=== PATIENT | female | born 1985 | race Caucasian/White ===

== ENCOUNTER 2016-12-02 11:51 | Outpatient (CLI) | payer OTHER ==
[~2016-12-02] VITALS: Ht 154.9 cm; Wt 63.5 kg
[~2016-12-02 11:51] MED LIST: FOLI0.4T2 PO; PREN1TAB49 PO
[2016-12-02 12:11] VITALS: Ht 154.9 cm; Wt 63.5 kg
[2016-12-02 12:12] VITALS: BP 105/56; PULSE 93; RESP 20
[2016-12-02 12:25] LABS: ADD SCAN DIFF NO
[2016-12-02 12:34] LABS: BASOPHIL # 0.1 10^3/ul (0.0-0.1); BASOPHILS % 0.5 % (0.0-2.0); EOSINOPHILS # 0.1 10^3/ul (0.0-0.5); EOSINOPHILS % 0.9 % (0.0-7.0); HEMATOCRIT 31.6 % (37.0-47.0); HEMOGLOBIN 10.6 g/dl (12.0-16.0); LYMPHOCYTES # 1.6 10^3/ul (0.8-2.9); LYMPHOCYTES % 15.5 % (15.0-51.0); MEAN CORPUSCULAR HEMOGLOBIN 30.7 pg (29.0-33.0); MEAN CORPUSCULAR HGB CONC 33.5 g/dl (32.0-37.0); MEAN CORPUSCULAR VOLUME 91.6 fl (82.0-101.0); MEAN PLATELET VOLUME 9.8 fl (7.4-10.4); MONOCYTE # 0.5 10^3/ul (0.3-0.9); NEUTROPHIL # 7.9 10^3/ul (1.6-7.5); NEUTROPHILS % 77.8 % (39.0-77.0); PLATELET COUNT 215 10^3/UL (140-415); RED BLOOD COUNT 3.45 10^6/ul (4.20-5.40); RED CELL DISTRIBUTION WIDTH 14.6 % (11.5-14.5); WHITE BLOOD COUNT 10.1 10^3/ul (4.8-10.8)
--- NOTE | 2016-12-02 13:42 | RADRPT ---
PROCEDURE: US OB. CLINICAL INDICATION: Size and dates , vaginal bleeding TECHNIQUE: Multiple sonographic images of the pelvis and gravid uterus were obtained. The images were reviewed on a PACS workstation. COMPARISON: No prior studies are available for comparison. FINDINGS: There is a single viable intrauterine gestation. Cardiac activity is present with 161 beats per min kaur. There is a transverse left presentation. The placenta is posterior. There is no evidence for an abruption. There is complete placenta previa . There is a normal amount of amniotic fluid with a MVP = 6.4 cm. Measurements were made in order to determine age. The results are as follows: BPD =5.7 cm HC =21.4 cm AC =18.1 cm FL =4.0 cm Estimated gestational age of approximately 23 weeks and 2 days based on ultrasound measurements. Clinical age: 23 weeks and 2 days. The estimated date of delivery is 03/29/2017, based on ultrasound measurements. The EFW = 560 g, 32.3 %, based on LMP age. RPTAT: AA IMPRESSION: Single viable intrauterine gestation of approximately 23 weeks and 2 days based on ultrasound measu rements. Posterior placenta with complete previa. .Teja Richmond MD, MD Date Time Electronically viewed and signed by .Teja Richmond MD, MD on 12/02/2016 13:42 .S/
--- NOTE | 2016-12-02 14:02 | TRIAGE ---
OB Triage Datetime Report Generated by CPN: 12/02/2016 14:01 Datetime: 12/02/2016 13:08 DTR's/Clonus: DTRs 2+ Headache: Denies Blurred Vision: No RUQ Epigastric Pain: Denies Facial Edema: None Labor Evaluation Frequency: NONE AT THIS TIME Pattern: Normal: <= 5 Contractions in 10 Minutes Heart Rate FHR Baseline Rate: 145 FHR Baseline Changes: No Baseline Change Variability: Moderate 6-25 bpm Accelerations: 15X15 Decelerations: None Category: Category I Pain Assessment Pain Scale: 0 Pain Presence: None/Denies Vaginal Exam Membrane Status: Intact Datetime: 12/02/2016 12:25 Labor Evaluation Frequency: NONE AT THIS TIME Heart Rate FHR Baseline Rate: 150 Monitor Mode: External US FHR Baseline Changes: No Baseline Change Variability: Moderate 6-25 bpm Decelerations: None Category: Category I Pain Assessment Pain Scale: 0 Pain Presence: None/Denies Vaginal Exam Membrane Status: Intact Datetime: 12/02/2016 12:07 Time of Arrival: 12/02/2016 12:00 EGA: 23.2 Arrived By: Ambulatory Arrived From: Home Chief Complaint: VAG SPOTTING SINCE 1030 KNOWN COMPLETE PREVIA Movement: Present Contractions: Denies/Absent Vaginal Bleeding: Scant Patient Complaints: Other Time Provider Notified: 12/02/2016 12:07 Provider Notified: DR RIVERA Initial Plan: EFM,CALL DR RIVERA DTR's/Clonus: DTRs 2+ Headache: Denies Blurred Vision: No RUQ Epigastric Pain: Denies Facial Edema: None Heart Rate FHR Baseline Rate: 145 Monitor Mode: External US FHR Baseline Changes: No Baseline Change Variability: Minimal - Undetectable to <=5 bpm Category: Category I Comments: APPROPRIATE FOR GEST AGE Pain Assessment Pain Scale: 0 Pain Presence: None/Denies Vaginal Exam Membrane Status: Intact Datetime: 12/02/2016 12:06 Maternal Assessment Level of Consciousness: Fully Conscious DTR's/Clonus: DTRs 2+; No Clonus Headache: Denies Blurred Vision: No Respiratory Effort: Unlabored; Regular Rhythm; Equal Expansion Breath Sounds, Left: Clear and Equal Breath Sounds, Right: Clear and Equal Nausea/Vomiting: Denies RUQ Epigastric Pain: Denies Facial Edema: None Temperature Route: Axillary Fall Risk Assessment History of Falling: (0) No Secondary Diagnosis: (0) No Ambulatory Aid: (0) Bedrest/Nurse Assist IV Therapy: (0) No Gait: (0) Normal/Bedrest/Immobile Mental Status: (0) Oriented to Own Ability Fall Score: 0 Fall Risk Score Definition: No Risk: No action required
--- NOTE | 2016-12-02 15:39 | QN ---
Documentation Comment iup 23 weeks co of spotting vss exam wnl us complete previa a/p iup 23 weeks previa- no bleeding currently-stable fht stable dc home precuations fu with ob in 2-3 days TIMOTHY RIVERA MD Dec 02, 2016 15:39
== END 2016-12-02 14:04 | disposition home or self-care (01) ==
LOC: OBT 11:51 → L-D 11:53 → OBT 14:04
PROVIDERS: ATTEND Obstetrics & Gynecology
DX: O26.852 Spotting complicating pregnancy, second trimester (principal); Z3A.23 23 weeks gestation of pregnancy
CPT/HCPCS: 36415; 76815; 85025; 86850; 86900; 86901; Z7500; G0463

== ENCOUNTER 2017-01-01 10:30 | Outpatient (CLI) | payer OTHER ==
[~2017-01-01] VITALS: Ht 160 cm; Wt 64.4 kg
[2017-01-01 10:38] VITALS: BP 103/61; PULSE 89; RESP 17; Ht 160 cm; Wt 64.4 kg
--- NOTE | 2017-01-01 11:31 | RADRPT ---
PROCEDURE: OB ultrasound for biophysical profile CLINICAL INDICATION: Bleeding. . TECHNIQUE: Multiple sonographic images of the pelvis were obtained. Transabdominal view of the gr avid uterus are available for review. The images were reviewed on a PACS workstation. COMPARISON: OB ultrasound 12/02/2016 FINDINGS: breathing movement = 2/2 tone = 2/2 motion = 2/2 KYLE = 2/2 KYLE = 13.3 cm Single live intrauterine with cardiac activity. heart rate equals 150.2 beats per minute. Presentation is breech. The placenta is posterior. Again noted is complete placenta previa IMPRESSION: 1. Single viable intrauterine gestation. 2. Biophysical profile = 8/8. 3. KYLE = 13.3 cm. 4. Complete placenta previa again noted. RPTAT: KK .Mick Wesley MD, Date Time Electronically viewed and signed by .Mick Wesley MD, MD on 01/01/2017 11:30 .B/
--- NOTE | 2017-01-01 11:33 | RADRPT ---
PROCEDURE: US OB - Limited weight. CLINICAL INDICATION: Bleeding. . TECHNIQUE: Multiple sonographic images of the pelvis were obtained. Transabdominal imaging only w as performed. The images were reviewed on a PACS workstation. COMPARISON: OB ultrasound 12/02/2016. FINDINGS: There is a single viable intrauterine gestation. Cardiac activity is present with 134 beats per min kaur. There is a breech presentation. Measurements were made in order to determine age. The results are as follows: BPD = 7.5 cm HC = 25.8 cm AC = 23.6 cm FL = 4.8 .cm Estimated gestational age of approximately 28 weeks 0 days +/ - 2 weeks 0 days by ultrasound evalua tion. The estimated date of delivery is 03/26/2017 by ultrasound evaluation. The EFW = 1068 +/- 168 g (31%). The placenta is posterior. There is complete placenta previa again noted. IMPRESSION: 1. Single viable intrauterine gestation of approximately 28 weeks 0 days gestation with estimated d ate of delivery of 03/26/2017 by ultrasound. 2. The estimated weight is 1068 g (31%) . 3. Complete placenta previa. RPTAT: KK .Mick Wesley MD, Date Time Electronically viewed and signed by .Mick Wesley MD, MD on 01/01/2017 11:32 .B/
[2017-01-01 11:39] LABS: ADD SCAN DIFF NO
[2017-01-01 11:58] LABS: BASOPHILS % 0.3 % (0.0-2.0); EOSINOPHILS # 0.1 10^3/ul (0.0-0.5); EOSINOPHILS % 0.6 % (0.0-7.0); HEMATOCRIT 31.2 % (37.0-47.0); HEMOGLOBIN 10.8 g/dl (12.0-16.0); LYMPHOCYTES # 1.6 10^3/ul (0.8-2.9); LYMPHOCYTES % 16.6 % (15.0-51.0); MEAN CORPUSCULAR HGB CONC 34.6 g/dl (32.0-37.0); MEAN CORPUSCULAR VOLUME 92.6 fl (82.0-101.0); MONOCYTE # 0.6 10^3/ul (0.3-0.9); MONOCYTES % 6.4 % (0.0-11.0); NEUTROPHIL # 7.2 10^3/ul (1.6-7.5); NEUTROPHILS % 75.7 % (39.0-77.0); PLATELET COUNT 188 10^3/UL (140-415); RED BLOOD COUNT 3.37 10^6/ul (4.20-5.40); RED CELL DISTRIBUTION WIDTH 15.4 % (11.5-14.5); WHITE BLOOD COUNT 9.5 10^3/ul (4.8-10.8)
[2017-01-01 12:05] LABS: ADD UMIC YES; UR ASCORBIC ACID NEGATIVE (NEGATIVE); UR BACTERIA FEW /HPF (NONE SEEN); UR BILIRUBIN (Dip) NEGATIVE (NEGATIVE); UR BLOOD (Dip) 3+ mg/dL (NEGATIVE); UR CLARITY CLEAR (CLEAR); UR COLOR YELLOW (YELLOW); UR GLUCOSE (Dip) NEGATIVE (NEGATIVE); UR KETONES (Dip) NEGATIVE (NEGATIVE); UR LEUKOCYTE ESTERASE (Dip) 1+ Leu/ul (NEGATIVE); UR NITRITE (Dip) NEGATIVE (NEGATIVE); UR RBC 11 /HPF (0-5); UR SPECIFIC GRAVITY (Dip) 1.003 (1.003-1.030); UR TOTAL PROTEIN (Dip) NEGATIVE (NEGATIVE); UR UROBILINOGEN (Dip) NEGATIVE (NEGATIVE)
--- NOTE | 2017-01-01 13:36 | TRIAGE ---
OB Triage Datetime Report Generated by CPN: 01/01/2017 13:36 Datetime: 01/01/2017 13:17 Labor Evaluation Frequency: 0 Monitor Mode: External Pattern: Normal: <= 5 Contractions in 10 Minutes Resting Tone [place]: Relaxed Heart Rate FHR Baseline Rate: 135 Monitor Mode: External US FHR Baseline Changes: No Baseline Change Variability: Moderate 6-25 bpm Accelerations: 15X15 Decelerations: None Category: Category I Pain Assessment Pain Scale: 0 Pain Presence: None/Denies Pain Type: N/A Datetime: 01/01/2017 12:00 Labor Evaluation Frequency: 0 Monitor Mode: External Pattern: Normal: <= 5 Contractions in 10 Minutes Resting Tone [place]: Relaxed Heart Rate FHR Baseline Rate: 135 Monitor Mode: External US FHR Baseline Changes: No Baseline Change Variability: Moderate 6-25 bpm Accelerations: 15X15 Decelerations: None Category: Category I Pain Assessment Pain Scale: 0 Pain Presence: None/Denies Pain Type: N/A Datetime: 01/01/2017 11:00 Labor Evaluation Frequency: 0 Monitor Mode: External Pattern: Normal: <= 5 Contractions in 10 Minutes Resting Tone [place]: Relaxed Heart Rate FHR Baseline Rate: 135 Monitor Mode: External US FHR Baseline Changes: No Baseline Change Variability: Moderate 6-25 bpm Accelerations: 15X15 Decelerations: None Category: Category I Pain Assessment Pain Scale: 0 Pain Presence: None/Denies Pain Type: N/A Datetime: 01/01/2017 10:36 Pain Assessment Pain Scale: 0 Pain Presence: None/Denies Pain Type: N/A Datetime: 01/01/2017 10:35 Assessment Type: Triage Maternal Assessment Level of Consciousness: Fully Conscious DTR's/Clonus: DTRs 2+; No Clonus Headache: Denies Blurred Vision: No Respiratory Effort: Unlabored; Regular Rhythm Breath Sounds, Left: Clear and Equal Breath Sounds, Right: Clear and Equal Nausea/Vomiting: Denies RUQ Epigastric Pain: Denies Lower Extremities Edema: None Degree: None Upper Extremities Edema: None Degree: None Facial Edema: None Fall Risk Assessment History of Falling: (0) No Secondary Diagnosis: (0) No Ambulatory Aid: (0) Bedrest/Nurse Assist IV Therapy: (0) No Gait: (0) Normal/Bedrest/Immobile Mental Status: (0) Oriented to Own Ability Fall Score: 0 Fall Risk Score Definition: No Risk: No action required Datetime: 01/01/2017 10:34 Time of Arrival: 01/01/2017 10:25 EGA: 27.4 Arrived By: Wheelchair Arrived From: Home Chief Complaint: PT PRESENTS TO TRIAGE COMPLAINING OF VAGINAL BLEEDING SINCE 0920 THIS MORNING. TYLER BUI REPORTS HAVING PLACENTA PREVIA. Movement: Present Contractions: Denies/Absent Rupture of Membranes: Denies Vaginal Bleeding: Small Vaginal Discharge: Present Recent Sexual Intercouse: Denies Abdominal Trauma: Not Applicable Patient Complaints: None Time Provider Notified: 01/01/2017 10:40 Provider Notified: ESHAGHIAN Initial Plan: EFM/U/S, UA, CBC, TYPE AND SCREEN Datetime: 12/02/2016 12:07 EGA: 23.2 Datetime: 12/02/2016 12:06 Fall Score: 0 Fall Risk Score Definition: No Risk: No action required
[2017-01-01 14:15] LABS: BARBITURATES Negative (NEGATIVE); BENZODIAZEPINES Negative (NEGATIVE); CANNABINOIDS Negative (NEGATIVE); COCAINE Negative (NEGATIVE); OPIATES Negative (NEGATIVE)
--- NOTE | 2017-01-01 14:25 | CONS ---
Date/Time of Note Date/Time of Note DATE: 01/01/17 TIME: 13:29 Consultation Date/Type/Reason Admit Date/Time January 01, 2017 OB triage consult Reason for Consultation This patient is a 31 years old 4 para 3 with estimated date of confinement of March 29, 2017 which makes her 27 weeks and 4 days today . she has been diagnosed with the central placenta previa and this morning 9,20 AM she started having some bleeding for this reason she came to the hospital complaining of vaginal bleeding slight abdominal pain . On examination she is a well-developed well-nourished lady at midterm. Her vital signs generally are normal with the blood pressure 103/61, pulse rate of 89 respirations 17,, and temperature of 92.2. On examination abdomen is soft no contraction, heart tone is normal ,no decelerations. patient is slightly pale Laboratory Tests Test 01/01/17 10:30 01/01/17 10:55 Urine Color YELLOW Urine Clarity CLEAR Urine pH 7.0 Urine Specific [place] 1.003 Urine Ketones NEGATIVEmg/dL Urine Nitrite NEGATIVEmg/dL Urine Bilirubin NEGATIVEmg/dL Urine Urobilinogen NEGATIVEmg/dL Urine Leukocyte Esterase 1+Hai/ul Urine Microscopic RBC 11/HPF Urine Microscopic WBC 5/HPF Urine Bacteria FEW/HPF Urine Hemoglobin 3+mg/dL Urine Glucose NEGATIVEmg/dL Urine Total Protein NEGATIVEmg/dl White Blood Count 9.510^3/ul Red Blood Count 3.3710^6/ul Hemoglobin 10.8g/dl Hematocrit 31.2% Mean Corpuscular Volume 92.6fl Mean Corpuscular Hemoglobin 32.0pg Mean Corpuscular Hemoglobin Concent 34.6g/dl Red Cell Distribution Width 15.4% Platelet Count 09115^3/UL Mean Platelet Volume 10.0fl Neutrophils % 75.7% Lymphocytes % 16.6% Monocytes % 6.4% Eosinophils % 0.6% Basophils % 0.3% Nucleated Red Blood Cells % 0.0/100WBC Neutrophils # 7.210^3/ul Lymphocytes # 1.610^3/ul Monocytes # 0.610^3/ul Eosinophils # 0.110^3/ul Basophils # 0.010^3/ul Nucleated Red Blood Cells # 0.010^3/ul Constitutional: No chills, No diaphoresis, No disoriented, No febrile, No improved, No no complaints, No other, No poor po, No requiring IVF, No requiring O2 Eyes: No discharge, No no complaints, No other, No pain, No redness, No visual change ENT: other (Conjunctival or slightly pale due to her anemia), No bleeding, No congestion, No discharge, No dysphagia, No no complaints, No pain, No sore throat Respiratory: No cough, No no complaints, No other, No pain, No pleuritic pain, No shortness of breath, No sputum, No wheezing Cardiovascular: No chest pain, No edema, No lightheadedness, No no complaints, No orthopenea, No other, No palpitations, No paroxysmal nocturnal dyspnea Gastrointestinal: other, No blood, No constipation, No decreased appetite, No diarrhea, No flatus, No nausea, No no complaints, No pain, No passing stool, No vomiting Genitourinary: other (Slight vaginal bleeding which subsided after about one half hour stay in the hospital), No bleeding, No discharge, No dysuria, No flank pain, No hematuria, No no complaints Musculoskeletal: No back pain, No bone/joint pain, No neck pain, No no complaints, No other, No restricted range of motion, No swelling Skin: No bruising, No erythema, No laceration, No no complaints, No other, No pruritis, No rash, No skin lesions Neurologic: No confusion, No dizziness, No focal-weakness, No headache, No no complaints, No other, No seizure, No syncope Endocrine: No dry skin, No no complaints, No other, No polydypsia, No polyuria , No temp intolerance Lymphatic: No adenopathy, No lymphadema, No no complaints, No other, No tender nodes Additional Comments Her lab tests were basically normal except for the mild anemia with hemoglobin of 10.8 hematocrit 31.2 . platelet count was 180,000 .urine showed 1+ hemoglobin and which is not unusual in the case of vaginal bleeding. On ultrasound study a single viable intrauterine gestation was reported with cardiac rhythm of 134. In breech presentation estimated gestational age was approximately 28 weeks by ultrasound estimated weight was 1068 g 168 g Her biophysical profile was reported 01/29 with KYLE of 13.3 With improvement of her condition and secession of vaginal bleeding patient discharged home with instruction to rest no intercourse in case of bleeding to come to the hospital immediately She most likely will undergo an elective section with her 36 weeks End of dictation Social History Smoking Status: Never smoker Exam/Review of Systems Vital Signs Vitals Vital Signs Date Time Temp Pulse Resp B/P Pulse Ox O2 Delivery O2 Flow Rate FiO2 01/01/17 10:38 98.2 89 17 103/61 Room Air Results Result Diagram: 01/01/17 1055 Results 24 hrs Laboratory Tests Test 01/01/17 10:30 01/01/17 10:55 Urine Color YELLOW Urine Clarity CLEAR Urine pH 7.0 Urine Specific [place] 1.003 Urine Ketones NEGATIVE Urine Nitrite NEGATIVE Urine Bilirubin NEGATIVE Urine Urobilinogen NEGATIVE Urine Leukocyte Esterase 1+ H Urine Microscopic RBC 11 H Urine Microscopic WBC 5 Urine Bacteria FEW A Urine Hemoglobin 3+ H Urine Glucose NEGATIVE Urine Total Protein NEGATIVE White Blood Count 9.5 Red Blood Count 3.37 L Hemoglobin 10.8 L Hematocrit 31.2 L Mean Corpuscular Volume 92.6 Mean Corpuscular Hemoglobin 32.0 Mean Corpuscular Hemoglobin Concent 34.6 Red Cell Distribution Width 15.4 H Platelet Count 188 Mean Platelet Volume 10.0 Neutrophils % 75.7 Lymphocytes % 16.6 Monocytes % 6.4 Eosinophils % 0.6 Basophils % 0.3 Nucleated Red Blood Cells % 0.0 Neutrophils # 7.2 Lymphocytes # 1.6 Monocytes # 0.6 Eosinophils # 0.1 Basophils # 0.0 Nucleated Red Blood Cells # 0.0 MEDHAT VEGA MD Jan 01, 2017 14:25
== END 2017-01-01 13:30 | disposition home or self-care (01) ==
LOC: OBT 10:30 → L-D 10:31 → OBT 13:30
PROVIDERS: ATTEND Obstetrics & Gynecology
DX: O46.8X2 Other antepartum hemorrhage, second trimester (principal); Z3A.27 27 weeks gestation of pregnancy
CPT/HCPCS: 36415; 76815; 76818; 80307; 81001; 85025; 86850; 86900; 86901; 87086; Z7500; G0463

== ENCOUNTER 2017-01-20 23:35 | Outpatient (CLI) | payer OTHER ==
[~2017-01-20] VITALS: Ht 157.5 cm; Wt 65.4 kg
[2017-01-21] VITALS: Ht 157.5 cm; Wt 65.4 kg
[2017-01-21 00:01] VITALS: BP 113/68; PULSE 80; RESP 18
[2017-01-21] MEDS ORDERED: FERR325C PO (00:09)
[2017-01-21] MEDS ORDERED: BETAMET NA PHOS/AC(6 MG/ML) 5ML INJ IM STA (01:04)
[2017-01-21] MEDS ORDERED: NIFEdipine 10 MG CAP PO STA (01:04)
[2017-01-21] MEDS ORDERED: LACTATED RINGER'S 1,000 ML IV STA (01:04)
[2017-01-21] MEDS ORDERED: NIFEdipine 10 MG CAP PO SCH (01:21)
[2017-01-21] MEDS ORDERED: LACTATED RINGER'S 1,000 ML IV SCH (02:00)
[2017-01-21 02:20] LABS: ADD UMIC YES; UR ASCORBIC ACID NEGATIVE (NEGATIVE); UR BACTERIA FEW /HPF (NONE SEEN); UR BILIRUBIN (Dip) NEGATIVE (NEGATIVE); UR BLOOD (Dip) 3+ mg/dL (NEGATIVE); UR CLARITY CLEAR (CLEAR); UR COLOR STRAW (YELLOW); UR GLUCOSE (Dip) NEGATIVE (NEGATIVE); UR KETONES (Dip) TRACE mg/dL (NEGATIVE); UR LEUKOCYTE ESTERASE (Dip) 1+ Leu/ul (NEGATIVE); UR NITRITE (Dip) NEGATIVE (NEGATIVE); UR RBC 6 /HPF (0-5); UR SPECIFIC GRAVITY (Dip) 1.005 (1.003-1.030); UR SQUAMOUS EPITHELIAL CELL FEW /HPF (FEW); UR TOTAL PROTEIN (Dip) NEGATIVE (NEGATIVE); UR UROBILINOGEN (Dip) NEGATIVE (NEGATIVE)
[2017-01-21 02:28] LABS: BASOPHILS % 0.4 % (0.0-2.0); EOSINOPHILS # 0.1 10^3/ul (0.0-0.5); EOSINOPHILS % 0.7 % (0.0-7.0); HEMATOCRIT 31.9 % (37.0-47.0); HEMOGLOBIN 11.3 g/dl (12.0-16.0); LYMPHOCYTES # 2.6 10^3/ul (0.8-2.9); LYMPHOCYTES % 22.9 % (15.0-51.0); MEAN CORPUSCULAR HEMOGLOBIN 32.8 pg (29.0-33.0); MEAN CORPUSCULAR HGB CONC 35.4 g/dl (32.0-37.0); MEAN CORPUSCULAR VOLUME 92.5 fl (82.0-101.0); MEAN PLATELET VOLUME 9.8 fl (7.4-10.4); MONOCYTE # 0.8 10^3/ul (0.3-0.9); MONOCYTES % 7.2 % (0.0-11.0); NEUTROPHIL # 7.6 10^3/ul (1.6-7.5); NEUTROPHILS % 68.2 % (39.0-77.0); PLATELET COUNT 180 10^3/UL (140-415); RED BLOOD COUNT 3.45 10^6/ul (4.20-5.40); RED CELL DISTRIBUTION WIDTH 14.9 % (11.5-14.5); WHITE BLOOD COUNT 11.2 10^3/ul (4.8-10.8)
--- NOTE | 2017-01-21 02:35 | RADRPT ---
PROCEDURE: US OB. CLINICAL INDICATION: Vaginal bleeding. TECHNIQUE: Multiple sonographic images of the pelvis were obtained. Transabdominal imaging only w as performed. The images were reviewed on a PACS workstation. COMPARISON: 01/01/2017. FINDINGS: Single live intrauterine is identified. Cardiac activity is present with 152 beats per mi nute. There is a vertex presentation. Measurements: BPD = 32 weeks 0 days. HC = 31 weeks 5 days. AC = 30 weeks 6 days. FL = 29 weeks 5 days. Estimated gestational age of approximately 31 weeks 1 day. The estimated date of delivery is 03/24/2017. The EFW = 1616 g which is at the 45th percentile. The placenta is left lateral. There is no evidence for an abruption or placenta previa. Cervix is 5.2 cm in length. IMPRESSION: Single live intrauterine gestation of approximately 31 weeks 1 day. RPTAT: HMVK .Esvin Brown MD, Date Time Electronically viewed and signed by .Esvin Brown MD, on 01/21/2017 02:34 .K/
--- NOTE | 2017-01-21 05:15 | PN ---
Triage Information Date/Time January 21, 2017 Weeks of Gestation 30w 3d : 4 Para: 3 Diabetes: none Hypertention: none Additional information Pt with a known previa came in after passing a medium sized clot. Pt was here mid November and mid December for spotting. On 01/14, 01/16 and 01/20 the pt reports that she passed a medium sized clot but apparently didn't think to come in until today. Pt has 3 children ranging from 5 to 10 years old and both she and her have no one here to help them at all if she is admitted to the hospital. She says she has a relative coming on 12/26 from [place] to help out. Her has his own business and apparently cannot stop his business to take care of the children. Pt denies any cramping. PMHx: Asthma. Anemia. Placenta previa. PSHx: Tonsillectomy. Tumgrace marcusck. NKDA. Objective Vital Signs Date Time Temp Pulse Resp B/P Pulse Ox O2 Delivery O2 Flow Rate FiO2 01/21/17 00:01 97.6 80 18 113/68 96 Room Air Intake and Output 01/20/17 01/20/17 01/21/17 15:00 23:00 07:00 Intake Total 1125 ml Balance 1125 ml Heart Rate: 130's Heart Rate Comments Accels to 160 bpm. No decels. Contractions: < 5 Minutes Apart Results/Medications Result Diagram: 01/21/17 0134 Results 24 hrs Laboratory Tests Test 01/21/17 00:37 01/21/17 01:34 Urine Color [place]AW Urine Clarity CLEAR Urine pH 6.0 Urine Specific [place] 1.005 Urine Ketones TRACE A Urine Nitrite NEGATIVE Urine Bilirubin NEGATIVE Urine Urobilinogen NEGATIVE Urine Leukocyte Esterase 1+ H Urine Microscopic RBC 6 H Urine Microscopic WBC 6 H Urine Squamous Epithelial Cells FEW Urine Bacteria FEW A Urine Hemoglobin 3+ H Urine Glucose NEGATIVE Urine Total Protein NEGATIVE White Blood Count 11.2 H Red Blood Count 3.45 L Hemoglobin 11.3 L Hematocrit 31.9 L Mean Corpuscular Volume 92.5 Mean Corpuscular Hemoglobin 32.8 Mean Corpuscular Hemoglobin Concent 35.4 Red Cell Distribution Width 14.9 H Platelet Count 180 Mean Platelet Volume 9.8 Neutrophils % 68.2 Lymphocytes % 22.9 Monocytes % 7.2 Eosinophils % 0.7 Basophils % 0.4 Nucleated Red Blood Cells % 0.0 Neutrophils # 7.6 H Lymphocytes # 2.6 Monocytes # 0.8 Eosinophils # 0.1 Basophils # 0.0 Nucleated Red Blood Cells # 0.0 Medications Current Medications Lactated Ringer's (Lr) 1,000 ml @ 125 mls/hr Q8H IV Last administered on t 02:19; Admin Dose 125 MLS/HR; Start 01/21/17 at 02:00 Nifedipine (Procardia) 20 mg Q6 PO ; Start 01/21/17 at 01:21 Imaging Results Cervical length is 5.2 cm. Per this report there is no previa (but on all prior exams she has had a complete previa, including 2 weeks ago!!). EFW 1616 grams. S=D. Assessment/Plan A: IUP at 30w 3d. Placenta previa. Bleeding. Asthma. P: Pt is rather adamant that she cannot stay as there is no one available to take care of her kids. Beta-methasone given. Pt to return in 24 hours for the 2nd dose. IV hydration and Procardia 20 mg p.o. x 1 given and the pt's UC's stopped. Modified bedrest at home and reviewed carefully what that exactly means. Pt sent out with Procardia 20 mg Rx to be taken q 6 hours. F/U with Dr Clemente as scheduled this week!! NEFTALI QUINTANA MD Jan 21, 2017 05:06
--- NOTE | 2017-01-21 05:47 | TRIAGE ---
OB Triage Datetime Report Generated by CPN: 01/21/2017 05:47 Datetime: 01/21/2017 05:20 Stage of : OB Triage Datetime: 01/21/2017 04:57 Stage of : OB Triage Labor Evaluation Frequency: 0 Monitor Mode: External Resting Tone [place]: Relaxed Heart Rate FHR Baseline Rate: 130 Monitor Mode: External US Variability: Moderate 6-25 bpm Accelerations: 15X15 Decelerations: None Category: Category I Datetime: 01/21/2017 03:20 Stage of : OB Triage Labor Evaluation Frequency: 2-10 Monitor Mode: External Duration (sec)2399: 40-70 Quality: Mild Resting Tone [place]: Relaxed Heart Rate FHR Baseline Rate: 130 Monitor Mode: External US Variability: Moderate 6-25 bpm Accelerations: 15X15 Decelerations: None Category: Category I Datetime: 01/21/2017 03:19 Stage of : OB Triage Datetime: 01/21/2017 02:31 Monitor Mode: Palpation Resting Tone [place]: Relaxed Contraction Comments: palpated kicks Datetime: 01/21/2017 02:17 Monitor Mode: External Monitor Mode: External US Datetime: 01/21/2017 02:12 Stage of : OB Triage Datetime: 01/21/2017 02:10 Stage of : OB Triage Datetime: 01/21/2017 02:01 Stage of : OB Triage Labor Evaluation Frequency: 3-7 Monitor Mode: External Duration (sec)2399: 50-120 Quality: Mild Resting Tone [place]: Relaxed Heart Rate FHR Baseline Rate: 120 Monitor Mode: External US Variability: Moderate 6-25 bpm Accelerations: 15X15 Decelerations: None Category: Category I Datetime: 01/21/2017 01:00 Stage of : OB Triage Labor Evaluation Frequency: 2-14 Monitor Mode: External Duration (sec)2399: 40-120 Quality: Mild Resting Tone [place]: Relaxed Heart Rate FHR Baseline Rate: 130 Monitor Mode: External US Variability: Moderate 6-25 bpm Accelerations: 15X15 Decelerations: None Category: Category I Datetime: 01/21/2017 00:45 Stage of : OB Triage Datetime: 01/21/2017 00:38 Stage of : OB Triage Datetime: 01/20/2017 23:51 Stage of : OB Triage Monitor Mode: External Contraction Comments: PLACED Monitor Mode: External US Comments: PLACED Datetime: 01/20/2017 23:44 Time of Arrival: 01/20/2017 23:28 EGA: 30.2 Arrived By: Wheelchair Arrived From: Home Chief Complaint: CLOTS, SPOTTING Movement: Present Contractions: Denies/Absent Rupture of Membranes: Denies Vaginal Bleeding: Clots Vaginal Discharge: Denies Recent Sexual Intercouse: Denies Abdominal Trauma: Not Applicable Patient Complaints: Other Additional Patient Complaints: Pt states she has placenta previa, and has had a hx of intermittent clots, spotting. Pt states dr told her she can drive, and started spotting after Time Provider Notified: 01/20/2017 23:33 Provider Notified: REICHE Initial Plan: VS, EFM, VS Datetime: 01/01/2017 10:35 Fall Risk Assessment Fall Score: 0 Fall Risk Score Definition: No Risk: No action required Datetime: 01/01/2017 10:34 EGA: 27.4 Datetime: 12/02/2016 12:07 EGA: 23.2 Datetime: 12/02/2016 12:06 Fall Risk Assessment Fall Score: 0 Fall Risk Score Definition: No Risk: No action required
== END 2017-01-21 05:25 | disposition home or self-care (01) ==
LOC: OBT 23:35 → L-D 23:35 → OBT 01-21 05:25
PROVIDERS: ATTEND Obstetrics & Gynecology
DX: O44.13 Complete placenta previa with hemorrhage, third trimester (principal); O99.513 Diseases of the respiratory system complicating pregnancy, third trimester; J45.909 Unspecified asthma, uncomplicated; Z3A.30 30 weeks gestation of pregnancy
CPT/HCPCS: 36415; 76815; 76817; 81001; 85025; 96360; 96361; 96372; J0702; J7120; Z7500; Z7610; G0463

== ENCOUNTER 2017-01-21 23:51 | Outpatient (CLI) | payer OTHER ==
[~2017-01-21] VITALS: Ht 157.5 cm; Wt 66.1 kg
[~2017-01-21 23:51] MED LIST changes: +FERR325C PO
[2017-01-22 00:13] VITALS: Ht 157.5 cm; Wt 66.1 kg
[2017-01-22 00:17] VITALS: BP 101/58; PULSE 86; RESP 18
[2017-01-22] MEDS ORDERED: BETAMET NA PHOS/AC(6 MG/ML) 5ML INJ IM SCH (00:30)
--- NOTE | 2017-01-22 05:06 | PN ---
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
--- NOTE | 2017-01-22 06:14 | TRIAGE ---
OB Triage Datetime Report Generated by CPN: 01/22/2017 06:14 Datetime: 01/22/2017 02:15 Stage of : OB Triage Datetime: 01/22/2017 01:36 Labor Evaluation Frequency: 1/HR Monitor Mode: External Duration (sec)2399: 100 Quality: Mild Pattern: Normal: <= 5 Contractions in 10 Minutes Resting Tone [place]: Relaxed Heart Rate FHR Baseline Rate: 135 Monitor Mode: External US FHR Baseline Changes: No Baseline Change Variability: Moderate 6-25 bpm Accelerations: 15X15 Decelerations: None Category: Category I Datetime: 01/22/2017 00:03 Stage of : OB Triage Assessment Type: Triage Time of Arrival: 01/21/2017 23:50 EGA: 30.3 Arrived By: Wheelchair Arrived From: Home Movement: Present Rupture of Membranes: Denies Vaginal Bleeding: None (Annotations: Data stored by CPN on behalf of user) Vaginal Discharge: Denies Recent Sexual Intercouse: Denies Abdominal Trauma: Not Applicable Patient Complaints: None Time Provider Notified: 01/22/2017 02:15 Provider Notified: DR REVELES Initial Plan: CALL MD Les Maternal Assessment Level of Consciousness: Fully Conscious DTR's/Clonus: DTRs 2+; No Clonus Headache: Denies Blurred Vision: No Respiratory Effort: Unlabored; Regular Rhythm; Equal Expansion Breath Sounds, Left: Clear and Equal Breath Sounds, Right: Clear and Equal Nausea/Vomiting: Denies RUQ Epigastric Pain: Denies Lower Extremities Edema: None Degree: None Upper Extremities Edema: None Degree: None Facial Edema: None Temperature Route: Oral Fall Risk Assessment History of Falling: (0) No Secondary Diagnosis: (0) No Ambulatory Aid: (0) Bedrest/Nurse Assist IV Therapy: (0) No Gait: (0) Normal/Bedrest/Immobile Mental Status: (0) Oriented to Own Ability Fall Score: 0 Fall Risk Score Definition: No Risk: No action required Monitor Mode: External Monitor Mode: External US Pain Assessment Pain Scale: 0 Datetime: 01/20/2017 23:44 EGA: 30.2 Datetime: 01/01/2017 10:35 Fall Score: 0 Fall Risk Score Definition: No Risk: No action required Datetime: 01/01/2017 10:34 EGA: 27.4 Datetime: 12/02/2016 12:07 EGA: 23.2 Datetime: 12/02/2016 12:06 Fall Score: 0 Fall Risk Score Definition: No Risk: No action required
== END 2017-01-22 02:26 | disposition home or self-care (01) ==
LOC: OBT 23:51 → L-D 23:54 → OBT 01-22 02:26
PROVIDERS: ATTEND Obstetrics & Gynecology
DX: Z34.83 Encounter for supervision of other normal pregnancy, third trimester (principal)
CPT/HCPCS: 96372; J0702; Z7500; G0463

== ENCOUNTER 2017-10-25 13:59 | Day surgery (SDC) | END 2017-10-25 17:45 | disposition home or self-care (01) ==